=== PATIENT | male | born 1995 | race Caucasian/White ===

== ENCOUNTER 2017-04-12 16:40 | Inpatient (IN) | payer OTHER ==
[~2017-04-12] VITALS: Ht 167.6 cm; Wt 59.0 kg
[2017-04-12] MEDS ORDERED: KETOROLAC 30MG/ML VIAL IV STA (17:37)
[2017-04-12] MEDS ORDERED: FAMOTIDINE 20MG/2ML VIAL IV STA (17:37)
[2017-04-12 18:09] LABS: BASOPHILS % 0.6 % (0.0-2.0); EOSINOPHILS % 2.8 % (0.0-5.0); HEMATOCRIT. 44.3 % (42.0-52.0); HEMOGLOBIN. 15.1 g/dL (14.0-18.0); LYMPHOCYTES % 20.3 % (20.0-50.0); MEAN CORPUSCULAR HEMOGLOBIN 28.7 pg (28.0-32.0); MEAN CORPUSCULAR VOLUME 84.3 fL (80.0-94.0); MEAN PLATELET VOLUME 8.5 fl (7.4-10.4); MONOCYTES % 6.1 % (2.0-8.0); NEUTROPHILS % 70.2 % (40.0-76.0); PLATELET 228 x1000/uL (130-400); RED BLOOD CELL COUNT 5.26 mill/uL (4.7-6.1); RED CELL DISTRIBUTION WIDTH 13.4 % (11.6-14.6)
[2017-04-12 18:10] LABS: INR 1.1; PROTHROMBIN TIME 11.7 sec
[2017-04-12 18:19] LABS: CARBON DIOXIDE 27 mEq/L (21-32); CHLORIDE 103 mEq/L (98-107)
[2017-04-12] MEDS ORDERED: SODIUM CHLORIDE 0.9% 1,000 ML IV ONE (19:45)
[2017-04-12] MEDS ORDERED: ONDANSETRON HCL 4MG/2ML VIAL IV ONE (20:00)
[2017-04-12] MEDS ORDERED: MORPHINE SULFATE 4 MG/ML CPJ (NOT FOR IM USE) IV ONE (20:00)
[2017-04-12 21:14] LABS: CLARITY URINE CLEAR (CLEAR); COLOR URINE YELLOW (YELLOW); GLUCOSE URINE NEGATIVE (NEGATIVE); KETONES URINE 2+ (NEGATIVE); LEUKOCYTE ESTERASE URINE TRACE (NEGATIVE); NITRITE URINE NEGATIVE (NEGATIVE); OCCULT BLOOD URINE 1+ (NEGATIVE); PROTEIN URINE NEGATIVE (NEGATIVE); SPECIFIC GRAVITY URINE 1.009 (1.005-1.030); UROBILINOGEN URINE 0.2 E.U./dL (0.2-1.0)
[2017-04-12 21:28] LABS: *AMPHETAMINES SCREEN URINE NEGATIVE (NEGATIVE); *BARBITURATES SCREEN URINE NEGATIVE (NEGATIVE); *BENZODIAZEPINES SCREEN URINE NEGATIVE (NEGATIVE); CANNABINOID URINE SCREEN PRESUMTIVE POSITIVE (NEGATIVE); METHADONE URINE SCREEN NEGATIVE (NEGATIVE); OPIATES URINE SCREEN NEGATIVE (NEGATIVE); PHENCYCLIDINE URINE SCREEN NEGATIVE (NEGATIVE)
[2017-04-12 22:04] LABS: *COCAINE SCREEN URINE NEGATIVE (NEGATIVE)
[2017-04-12 23:30] VITALS: BP 112/76
[2017-04-13] VITALS: BP 112/76
[2017-04-13] MEDS ORDERED: IPRATROPIUM/ALBUTEROL 0.5-3(2.5)MG/3ML NEB INH PRN (01:15)
[2017-04-13] MEDS: SODIUM CHLORIDE 0.9% 1,000 ML IV SCH ×2 (02:25→17:36)
[2017-04-13 04:00] VITALS: BP 115/69
[2017-04-13 07:09] LABS: CREATINE KINASE 167 IU/L (39-308); CREATINE KINASE MB FRACTION 0.6 ng/mL (0.5-3.6); TROPONIN I < 0.02 ng/mL (0.00-0.04)
[2017-04-13 08:00] VITALS: BP 116/68
[2017-04-13] MEDS: ONDANSETRON HCL 4MG/2ML VIAL IV PRN ×2 (09:54→22:44)
[2017-04-13 12:00] VITALS: BP 100/60
[2017-04-13 14:52] LABS: CREATINE KINASE 154 IU/L (39-308); CREATINE KINASE MB FRACTION 0.5 ng/mL (0.5-3.6); TROPONIN I < 0.02 ng/mL (0.00-0.04)
[2017-04-13 16:00] VITALS: BP 103/60
[2017-04-13 20:00] VITALS: BP 103/70
[2017-04-13] MEDS ORDERED: MORPHINE SULFATE 4 MG/ML CPJ (NOT FOR IM USE) IV PRN (23:45)
[2017-04-14] VITALS: BP 108/64
[2017-04-14 04:00] VITALS: BP 120/67
[2017-04-14] MEDS: SODIUM CHLORIDE 0.9% 1,000 ML IV SCH ×3 (06:18→19:15)
[2017-04-14 07:08] LABS: BASOPHILS % 0.2 % (0.0-2.0); EOSINOPHILS % 0.1 % (0.0-5.0); HEMOGLOBIN. 15.3 g/dL (14.0-18.0); LYMPHOCYTES % 8.8 % (20.0-50.0); MEAN CORPUSCULAR HEMOGLOBIN 28.8 pg (28.0-32.0); MEAN CORPUSCULAR VOLUME 86.9 fL (80.0-94.0); MEAN PLATELET VOLUME 8.7 fl (7.4-10.4); MONOCYTES % 3.6 % (2.0-8.0); NEUTROPHILS % 87.3 % (40.0-76.0); PLATELET 234 x1000/uL (130-400); RED BLOOD CELL COUNT 5.29 mill/uL (4.7-6.1); RED CELL DISTRIBUTION WIDTH 13.3 % (11.6-14.6)
[2017-04-14 07:22] LABS: CARBON DIOXIDE 15 mEq/L (21-32); CHLORIDE 104 mEq/L (98-107); HDL CHOLESTEROL 36 mg/dL (40-59); LDL CHOLESTEROL 96 mg/dL (5-100)
[2017-04-14 08:00] VITALS: BP 134/76
[2017-04-14 12:00] VITALS: BP 114/65
[2017-04-14 16:00] VITALS: BP 126/72
[2017-04-14 20:00] VITALS: BP 118/76
[2017-04-15] VITALS: BP 119/71
[2017-04-15 04:00] VITALS: BP 118/67
[2017-04-15 07:29] LABS: HEMATOCRIT. 43.1 % (42.0-52.0); HEMOGLOBIN. 14.7 g/dL (14.0-18.0); MEAN CORPUSCULAR VOLUME 84.7 fL (80.0-94.0); PLATELET 239 x1000/uL (130-400); RED BLOOD CELL COUNT 5.09 mill/uL (4.7-6.1); RED CELL DISTRIBUTION WIDTH 13.3 % (11.6-14.6)
[2017-04-15 08:00] VITALS: BP 109/69
[2017-04-15 08:40] LABS: CARBON DIOXIDE 24 mEq/L (21-32); CHLORIDE 107 mEq/L (98-107)
[2017-04-15 12:00] VITALS: BP 112/69
[2017-04-15] MEDS ORDERED: POTASSIUM CHLORIDE INJ 40 MEQ in DEXT 5% WATER 500 ML IV NR (13:00)
[2017-04-15 13:34] LABS: PLATELET ESTIMATE NORMAL
[2017-04-15 16:00] VITALS: BP 126/69
[2017-04-15 20:00] VITALS: BP 128/81
[2017-04-16] VITALS: BP 105/74
[2017-04-16] MEDS: SODIUM CHLORIDE 0.9% 1,000 ML IV SCH ×2 (00:43→09:44)
[2017-04-16 04:00] VITALS: BP 125/78
[2017-04-16 07:18] LABS: AMYLASE 243 IU/L (25-115)
[2017-04-16 08:00] VITALS: BP 114/81
[2017-04-16 12:00] VITALS: BP 116/70
[2017-04-16 13:56] VITALS: BP 116/70
== END 2017-04-16 14:20 | disposition home or self-care (01) | DRG 282 ==
LOC: ER 21:11 → 6EST 21:41 → EDBEDREQ 21:49 → ENRESERV 21:49
PROVIDERS: ADMIT Internal Medicine; ATTEND Internal Medicine
DX: K85.90 Acute pancreatitis without necrosis or infection, unspecified (principal); F17.200 Nicotine dependence, unspecified, uncomplicated; F12.90 Cannabis use, unspecified, uncomplicated; Z60.2 Problems related to living alone
CPT/HCPCS: 36415; 71010; 74176; 76700; 80053; 80061; 80305; 81001; 82150; 82270; 82550; 82553; 83690; 84443; 84484; 85007; 85025; 85027; 85610; 87040; 93005; 93970; 96361; 96374; 96375; 99285; G0482; J1885; J2270; J2405; J3480; J3490; J7030; J7060

== ENCOUNTER 2017-05-05 09:48 | Emergency (ER) | payer OTHER ==
[~2017-05-05] VITALS: Ht 167.6 cm; Wt 61.0 kg
[2017-05-05] MEDS ORDERED: UNKNOWN PAIN MED (10:35)
[2017-05-05] MEDS ORDERED: FAMOTIDINE 20MG TABLET PO ONE (11:30)
[2017-05-05 11:54] LABS: BASOPHILS % 0.7 % (0.0-2.0); EOSINOPHILS % 2.9 % (0.0-5.0); HEMATOCRIT. 45.9 % (42.0-52.0); HEMOGLOBIN. 15.6 g/dL (14.0-18.0); LYMPHOCYTES % 17.9 % (20.0-50.0); MEAN CORPUSCULAR VOLUME 85.7 fL (80.0-94.0); MEAN PLATELET VOLUME 8.5 fl (7.4-10.4); MONOCYTES % 4.5 % (2.0-8.0); PLATELET 220 x1000/uL (130-400); RED BLOOD CELL COUNT 5.36 mill/uL (4.7-6.1); RED CELL DISTRIBUTION WIDTH 13.5 % (11.6-14.6)
[2017-05-05 12:08] LABS: CARBON DIOXIDE 30 mEq/L (21-32); CHLORIDE 103 mEq/L (98-107)
[2017-05-05 12:36] LABS: CLARITY URINE CLEAR (CLEAR); COLOR URINE YELLOW (YELLOW); GLUCOSE URINE NEGATIVE (NEGATIVE); KETONES URINE 1+ (NEGATIVE); LEUKOCYTE ESTERASE URINE TRACE (NEGATIVE); NITRITE URINE NEGATIVE (NEGATIVE); OCCULT BLOOD URINE 1+ (NEGATIVE); PROTEIN URINE NEGATIVE (NEGATIVE); SPECIFIC GRAVITY URINE 1.009 (1.005-1.030); UROBILINOGEN URINE 0.2 E.U./dL (0.2-1.0)
[2017-05-05 13:20] VITALS: BP 124/61
== END 2017-05-05 13:54 | disposition home or self-care (01) ==
LOC: ER 09:48
DX: K86.1 Other chronic pancreatitis (principal); F12.10 Cannabis abuse, uncomplicated
CPT/HCPCS: 36415; 80053; 81001; 83690; 85025; 99284

== ENCOUNTER 2019-04-22 12:02 | Inpatient (IN) | payer OTHER ==
[~2019-04-22] VITALS: Ht 153.7 cm; Wt 56.7 kg
[~2019-04-22 12:02] MED LIST: UNKNOWN PAIN MED
[2019-04-22] MEDS ORDERED: ONDANSETRON HCL 4MG/2ML INJ IV STA ×2 (13:32→16:03)
[2019-04-22] MEDS ORDERED: SODIUM CHLORIDE 0.9% 1,000 ML IV ONE ×2 (13:32→17:37)
[2019-04-22] MEDS ORDERED: FAMOTIDINE 20MG/2ML VIAL IV STA (13:32)
[2019-04-22 14:02] LABS: HEMATOCRIT. 46.6 % (42.0-52.0); HEMOGLOBIN. 15.8 g/dL (14.0-18.0); MEAN CORPUSCULAR HEMOGLOBIN 29.7 pg (28.0-32.0); MEAN CORPUSCULAR VOLUME 87.3 fL (80.0-94.0); MEAN PLATELET VOLUME 8.5 fl (7.4-10.4); PLATELET 239 x1000/uL (130-400); RED BLOOD CELL COUNT 5.34 mill/uL (4.7-6.1); RED CELL DISTRIBUTION WIDTH 13.6 % (11.6-14.6)
[2019-04-22 14:10] LABS: INR 1.3; PROTHROMBIN TIME 13.1 sec (9.6-11.0)
[2019-04-22 14:13] LABS: CHLORIDE 104 mEq/L (98-107)
[2019-04-22 14:17] LABS: ETHANOL BLOOD < 10 mg/dL
[2019-04-22 14:32] LABS: PLATELET ESTIMATE NORMAL
[2019-04-22] MEDS ORDERED: MORPHINE SULFATE 4 MG/ML CPJ (NOT FOR IM USE) IV STA (16:03)
[2019-04-22] MEDS ORDERED: PIPERACILLIN/TAZ 3.375G PREMIX 50 ML IV ONE (16:15)
[2019-04-22] MEDS ORDERED: BUPIVACAINE HCL/PF 0.5% (5MG/ML) 10ML ONE (17:02)
[2019-04-22] MEDS ORDERED: SKIN ADHESIVE 0.7 GM EA TOP ONE (17:02)
[2019-04-22 17:03] LABS: CLARITY URINE CLEAR (CLEAR); COLOR URINE YELLOW (YELLOW); KETONES URINE 1+ (NEGATIVE); LEUKOCYTE ESTERASE URINE NEGATIVE (NEGATIVE); NITRITE URINE NEGATIVE (NEGATIVE); OCCULT BLOOD URINE TRACE (NEGATIVE); PH URINE 7.5 (4.5-8.0); PROTEIN URINE NEGATIVE (NEGATIVE); SPECIFIC GRAVITY URINE 1.006 (1.005-1.030); UROBILINOGEN URINE 0.2 E.U./dL (0.2-1.0)
[2019-04-22] MEDS ORDERED: PROPOFOL 200MG/20ML VIAL IV ONE (17:16)
[2019-04-22] MEDS ORDERED: METOCLOPRAMIDE HCL 10MG/2ML VIAL ONE (17:16)
[2019-04-22] MEDS ORDERED: SUCCINYLCHOLINE CHLORIDE 200MG/10ML IV ONE (17:16)
[2019-04-22] MEDS ORDERED: ROCURONIUM BROMIDE 10MG/ML VIAL 5ML IV ONE (17:16)
[2019-04-22] MEDS ORDERED: SODIUM CHLORIDE 0.9% 10ML VIAL ONE (17:16)
[2019-04-22] MEDS ORDERED: GLYCOPYRROLATE 0.2 MG/ML 2ML VIAL ONE (17:16)
[2019-04-22] MEDS ORDERED: FENTANYL CITRATE/PF 50MCG/ML 2ML VIAL ONE ×2 (17:16→17:31)
[2019-04-22] MEDS ORDERED: LIDOCAINE HCL/PF 1% 10 MG/ML 5ML VIAL ONE (17:16)
[2019-04-22] MEDS ORDERED: CEFAZOLIN SODIUM 1000MG/VIAL ONE (17:16)
[2019-04-22] MEDS ORDERED: ONDANSETRON HCL 4MG/2ML INJ ONE (17:16)
[2019-04-22] MEDS ORDERED: NEOSTIGMINE METHYLSULFATE 1MG/ML 10 ML VIAL ONE (17:16)
[2019-04-22] MEDS ORDERED: MIDAZOLAM HCL 2 MG/2 ML VIAL ONE (17:16)
[2019-04-22 17:17] LABS: *AMPHETAMINES SCREEN URINE NEGATIVE (NEGATIVE); *BARBITURATES SCREEN URINE NEGATIVE (NEGATIVE); *BENZODIAZEPINES SCREEN URINE NEGATIVE (NEGATIVE)
[2019-04-22 17:18] LABS: CANNABINOID URINE SCREEN PRESUMTIVE POSITIVE (NEGATIVE); METHADONE URINE SCREEN NEGATIVE (NEGATIVE); OPIATES URINE SCREEN NEGATIVE (NEGATIVE); PHENCYCLIDINE URINE SCREEN NEGATIVE (NEGATIVE)
[2019-04-22 17:19] LABS: *COCAINE SCREEN URINE NEGATIVE (NEGATIVE)
[2019-04-22] MEDS ORDERED: MORPHINE SULFATE 2 MG/ML CPJ (NOT FOR IM USE) IV PRN ×2 (17:30→17:45)
[2019-04-22] MEDS ORDERED: HYDROCODONE/ACETAMINOPHEN 5/325MG TABLET PO PRN ×2 (17:30)
[2019-04-22] MEDS ORDERED: HYDROMORPHONE HCL/PF 2MG/ML CPJ IV PRN (17:45)
[2019-04-22] MEDS ORDERED: MEPERIDINE HCL/PF 25MG/ML CPJ IV PRN (17:45)
[2019-04-22] MEDS ORDERED: MEPERIDINE HCL/PF 25MG/ML CPJ ONE (18:15)
[2019-04-22] MEDS: ONDANSETRON HCL 4MG/2ML INJ IV PRN ×2 (19:22→22:11)
[2019-04-22 20:00] VITALS: BP 118/56
[2019-04-22] MEDS: SODIUM CHLORIDE 0.9% INJ 3ML FLUSH IVF SCH (22:00)
[2019-04-22] MEDS: MORPHINE SULFATE 4 MG/ML CPJ (NOT FOR IM USE) IV PRN (22:12)
[2019-04-23] VITALS: BP 108/52
[2019-04-23] MEDS: DEXT 5%/0.45% NACL KCL 20MEQ/L 1,000 ML IV SCH ×2 (01:57→14:35)
[2019-04-23 04:00] VITALS: BP 111/50
[2019-04-23 08:00] VITALS: BP 124/74
[2019-04-23] MEDS: MORPHINE SULFATE 4 MG/ML CPJ (NOT FOR IM USE) IV PRN (09:54)
[2019-04-23 12:00] VITALS: BP 119/69
[2019-04-23] MEDS: SODIUM CHLORIDE 0.9% INJ 3ML FLUSH IVF SCH (14:35)
[2019-04-23 16:00] VITALS: BP 112/69
[2019-04-23 17:49] VITALS: BP 112/64
== END 2019-04-23 18:15 | disposition home or self-care (01) | DRG 234 ==
LOC: ER 12:02 → ORIP 16:35 → 6EST 20:30
PROVIDERS: ADMIT Internal Medicine; ATTEND Surgery
PROC: 0DTJ4ZZ Resection of Appendix, Percutaneous Endoscopic Approach (ICD-10-PCS; principal; 2019-04-22)
DX: K35.80 Unspecified acute appendicitis (principal); F12.90 Cannabis use, unspecified, uncomplicated; N40.0 Benign prostatic hyperplasia without lower urinary tract symptoms
CPT/HCPCS: 36415; 74176; 80305; 80320; 88304; 96374; 99285; J0330; J0690; J2175; J2250; J2270; J2405; J2543; J2704; J2710; J2765; J3010; J3490; J7030; G0480

== ENCOUNTER 2025-08-01 08:25 | Emergency (ER) | payer OTHER ==
[~2025-08-01] VITALS: Ht 167.6 cm; Wt 54.0 kg
[2025-08-01 08:37] VITALS: TEMP 36.7; O2SAT 100
[2025-08-01] MEDS ORDERED: IBUP-1455 MT (09:40)
[2025-08-01 09:56] VITALS: BP 106/69; PULSE 67; RESP 18; O2SAT 100
== END 2025-08-01 09:57 | disposition home or self-care (01) ==
LOC: ER 08:38
DX: S62.101A Fracture of unspecified carpal bone, right wrist, initial encounter for closed fracture (principal); F12.90 Cannabis use, unspecified, uncomplicated; Z90.49 Acquired absence of other specified parts of digestive tract; V00.131A Fall from skateboard, initial encounter; Y93.51 Activity, roller skating (inline) and skateboarding; Y92.89 Other specified places as the place of occurrence of the external cause; Y99.9 Unspecified external cause status
CPT/HCPCS: 29125; 73110; 73130; 99284